=== PATIENT | female | born 1955 | race African-American/Black ===

== ENCOUNTER → 2017-04-14 | Outpatient (CLI) | payer BC ==
[2017-04-14 12:49] LABS: CREATININE 0.8 mg/dL (0.6-1.0); GFR 88.2; POTASSIUM 3.5 mmol/L (3.5-5.1)
== END | disposition home or self-care (01) ==
LOC: LAB 12:00
PROVIDERS: ATTEND Internal Medicine Cardiovascular Disease
DX: I10 Essential (primary) hypertension (principal); G72.89 Other specified myopathies
CPT/HCPCS: 36415; 80048; 83735

== ENCOUNTER → 2017-06-16 | Outpatient (CLI) | payer BC ==
[2017-06-16 15:32] LABS: ALBUMIN 4.2 g/dL (3.4-5.0); ALBUMIN/GLOBULIN RATIO 1.2 (1.0-1.7); CALCIUM 9.6 mg/dL (8.5-10.1); CREATININE 0.7 mg/dL (0.6-1.0); GFR 102.9; POTASSIUM 3.3 mmol/L (3.5-5.1); TOTAL BILIRUBIN 0.5 mg/dL (0.2-1.0); TOTAL PROTEIN 7.8 g/dL (6.4-8.2)
== END | disposition home or self-care (01) ==
LOC: LAB 14:50
PROVIDERS: ATTEND Internal Medicine Cardiovascular Disease
DX: I10 Essential (primary) hypertension (principal); E78.2 Mixed hyperlipidemia; E11.9 Type 2 diabetes mellitus without complications; I51.89 Other ill-defined heart diseases; R94.31 Abnormal electrocardiogram [ECG] [EKG]
CPT/HCPCS: 80053; 82465; 83036

== ENCOUNTER → 2020-09-10 | Outpatient (CLI) | payer BC, MEDICARE, OTHER ==
--- NOTE | 2020-09-10 15:09 | RAD ---
MR#: [id number] Date of Study: 09/10/2020 Ordering Physician: MARICRUZ GALDAMEZ, Referring Physician: MARICRUZ GALDAMEZ, Tech: Amando Yadav MBA, RDMS, RVT, RDCS, RTR APPROVED REPORT Patient Location: OUT-PATIENT Indications PAD Right arm 103, right ankle PT 116, DP 110, index 1.0 Left arm 115, left ankle PT 107, DP 103, index 0.93 Findings Near normal bilateral ABIs as noted above. No significant disease noted. Critical Notification Critical Value: No <Conclusion> Near normal bilateral LILY. Signed by : Maricruz Galdamez, Electronically Approved : 09/10/2020 15:08:43
--- NOTE | 2020-09-10 15:16 | RAD ---
MR#: [id number] Date of Study: 09/10/2020 Ordering Physician: MARICRUZ GALDAMEZ, Referring Physician: MARICRUZ GALDAMEZ, Tech: Amando Yadav MBA, RDMS, RVT, RDCS, RTR APPROVED REPORT Patient Location: OUT-PATIENT Indications PAD VELOCITY AND DOPPLER WAVEFORM ANALYSIS RIGHT cm/secWaveformSeverity LEFT cm/secWaveform Severity dCFA 191.0MonophasicdCFA 128.0Monophasic Prof Fem Art. 75.0MonophasicProf Fem Art. 69.0Monophasic Fem Art Prox. 214.0MonophasicFem Art Prox. 143.0Monophasic Fem Art Mid. 154.0MonophasicFem Art Mid. 113.0Monophasic Fem Art Dist. 147.0MonophasicFem Art Dist. 108.0Monophasic Pop Art(Fossa) 103.0MonophasicPop Art(AK) 91.0Monophasic SOFTWARE INTERN Prox. 38.0MonophasicPTA Prox. 42.0Monophasic SOFTWARE INTERN Dist. 36.0MonophasicPTA Dist. 44.0Monophasic JA Prox. 66.0BiphasicATA Prox. 69.0Monophasic DPA 52BiphasicDPA 47Monophasic Findings Grayscale images demonstrate mild diffuse atherosclerotic plaque. There are mostly monophasic wavefo kaur bilaterally in the lower extremity arterial vessels with two-vessel runoff below the knee. This suggests either diffuse calcification versus more proximal vessel disease. A combined ankle-brachial index with this study revealed near normal LILY suggestive of calcification rather than aortoiliac di sease. Critical Notification Critical Value: No <Conclusion> 1. Monophasic waveforms throughout the bilateral lower extremities with two-vessel runoff without an y critical stenosis identified. Signed by : Maricruz Galdamez, Electronically Approved : 09/10/2020 15:15:58
== END ==
LOC: US 11:29
PROVIDERS: ATTEND Internal Medicine Cardiovascular Disease
DX: I70.203 Unspecified atherosclerosis of native arteries of extremities, bilateral legs (principal)
CPT/HCPCS: 93922; 93925

== ENCOUNTER → 2020-09-18 | Outpatient (CLI) | payer OTHER ==
[2020-09-18 12:12] LABS: ALBUMIN 3.4 g/dL (3.4-5.0); CALCIUM 8.7 mg/dL (8.5-10.1); CREATININE 1.1 mg/dL (0.6-1.0); GFR 60.3; POTASSIUM 4.1 mmol/L (3.5-5.1); TOTAL BILIRUBIN 0.2 mg/dL (0.2-1.0); TOTAL PROTEIN 6.8 g/dL (6.4-8.2)
[2020-09-18 12:14] LABS: CHOLESTEROL/HDL RATIO 2.4
== END ==
LOC: LAB 11:10
PROVIDERS: ATTEND Internal Medicine Cardiovascular Disease
DX: E78.5 Hyperlipidemia, unspecified (principal); I10 Essential (primary) hypertension
CPT/HCPCS: 36415; 80053; 80061; 83880

== ENCOUNTER → 2020-10-14 | Outpatient (CLI) | payer OTHER ==
--- NOTE | 2020-10-14 13:52 | CARD ---
MR#: [id number] Date of Study: 10/14/2020 Ordering Physician: MARICRUZ GALDAMEZ, Referring Physician: MARICRUZ GALDAMEZ, Tech: Kajal Wei [facility] APPROVED REPORT EXAM: Two-dimensional and M-mode echocardiogram with Doppler and color Doppler. Other Information Quality : Good INDICATION Congestive Heart Failure 2D DIMENSIONS Left Atrium(2D)3.5 (1.6-4.0cm)IVSd1.2 (0.7-1.1cm) Aortic Root(2D)2.5 (2.0-3.7cm)LVDd4.0 (3.9-5.9cm) LVOT Diameter1.9 (1.8-2.4cm)PWd0.8 (0.7-1.1cm) LVDs3.4 (2.5-4.0cm)FS (%) 16.1 % SV24.4 mlLVEF(%)34.4 (>50%) Aortic Valve AoV Peak Naseem.135.9cm/sAoV VTI32.5cm AO Peak GR.7.4mmHgLVOT Peak Naseem.89.6cm/s AO Mean GR.4mmHgAVA (VMAX)1.84cm2 JESSICA (VTI)1.80cm2 Mitral Valve MV E Fajgfdil39.6cm/sMV DECEL RLPY595eg MV A Bkuvqxmz26.7cm/sE/A Ratio1.2 Tricuspid Valve TR P. Gosinvtu100qx/sRAP DBVDOAZO5vmYk TR Peak Gr.55zcPiWBDZ45trQm Pulmonary Vein S1 Dtsccmbt46.1cm/sD2 Kviqwfnm32.4cm/s LEFT VENTRICLE The left ventricle is normal size. There is normal left ventricular wall thickness. Left ventricle sy stolic function is mildly impaired. The Ejection Fraction is 45%. There is mild global hypokinesis of the left ventricle. Transmitral Doppler flow pattern is Grade II-pseudonormal filling dynamics. RIGHT VENTRICLE The right ventricle is normal size. The right ventricular systolic function is normal. ATRIA The left atrium size is normal. The right atrium size is normal. The interatrial septum is intact wit h no evidence for an atrial septal defect or patent foramen ovale as noted on 2-D or Doppler imaging. AORTIC VALVE The aortic valve is calcified but opens well. Doppler and Color Flow revealed no significant aortic r egurgitation. There is no significant aortic valvular stenosis. MITRAL VALVE The mitral valve is calcified but opens well. Mitral annular calcification is mild. There is no evide nce of mitral valve prolapse. There is no mitral valve stenosis. Doppler and Color-flow revealed mild mitral regurgitation. TRICUSPID VALVE The tricuspid valve is normal in structure and function. Doppler and Color Flow revealed trace to mil d tricuspid regurgitation. The PA pressure was estimated at 30 mmHg. There is no tricuspid valve sten osis. PULMONIC VALVE The pulmonic valve is not well visualized. Doppler and Color Flow revealed trace pulmonic valvular re gurgitation. There is no pulmonic valvular stenosis. GREAT VESSELS The aortic root is normal in size. The ascending aorta is not well seen. The IVC is normal in size an d collapses >50% with inspiration. PERICARDIAL EFFUSION There is no evidence of significant pericardial effusion. Critical Notification Critical Value: No <Conclusion> Left ventricle systolic function is mildly impaired. The Ejection Fraction is 45%. There is mild global hypokinesis of the left ventricle. Doppler and Color-flow revealed mild mitral regurgitation. Signed by : Maricruz Galdamez, Electronically Approved : 10/14/2020 13:51:50
== END ==
LOC: ECHO 12:08
PROVIDERS: ATTEND Internal Medicine Cardiovascular Disease
DX: I08.3 Combined rheumatic disorders of mitral, aortic and tricuspid valves (principal); I50.9 Heart failure, unspecified
CPT/HCPCS: 93306

== ENCOUNTER → 2021-04-05 | Outpatient (CLI) | payer OTHER ==
[2021-04-05 11:24] LABS: CALCIUM 9.2 mg/dL (8.5-10.1); CREATININE 0.9 mg/dL (0.6-1.0)
[2021-04-05 11:26] LABS: CHOLESTEROL/HDL RATIO 2.5
== END ==
LOC: LAB 10:29
PROVIDERS: ATTEND Internal Medicine Cardiovascular Disease
DX: I11.0 Hypertensive heart disease with heart failure (principal); I50.9 Heart failure, unspecified; E78.5 Hyperlipidemia, unspecified
CPT/HCPCS: 36415; 80048; 80061; 83721; 83880

== ENCOUNTER → 2021-10-04 | Outpatient (CLI) | payer MEDICARE, OTHER ==
[~2021-10-04] MED LIST: ALBU2.5V8 INH; ATOR10TA60 PO; CARV25TA2 PO; FLUT1DIS IH; FURO-69 PO; LEVO25TA4 PO; LOSA-73 PO; METF500T16 PO; REGADENOSON 0.4 MG/5 ML DISP.SYRIN. IV ONE
[2021-10-04 11:34] LABS: ALBUMIN 4.2 g/dL (3.4-5.0); ALBUMIN/GLOBULIN RATIO 1.1 (1.0-1.7); CALCIUM 9.1 mg/dL (8.5-10.1); CREATININE 1.1 mg/dL (0.6-1.0); GFR 60.1; POTASSIUM 3.9 mmol/L (3.5-5.1); TOTAL BILIRUBIN 0.3 mg/dL (0.2-1.0); TOTAL PROTEIN 7.9 g/dL (6.4-8.2)
[2021-10-04 11:38] LABS: CHOLESTEROL/HDL RATIO 2.4
--- NOTE | 2021-10-04 17:06 | RAD ---
MR#: [id number] Date of Study: 10/04/2021 Ordering Physician: MARICRUZ GALDAMEZ, Referring Physician: MARICRUZ GALDAMEZ, Tech: Amando Yadav MBA, RDMS, RVT, RDCS, RTR APPROVED REPORT Patient Location: OUT-PATIENT Indications PAD VELOCITY AND DOPPLER WAVEFORM ANALYSIS RIGHT cm/secWaveformSeverity LEFT cm/secWaveform Severity dCFA 229.0MonophasicdCFA 148.0Monophasic Prof Fem Art. 138.0Prof Fem Art. 63.0Monophasic Fem Art Prox. 199.0MonophasicFem Art Prox. 193.0Monophasic Fem Art Mid. 301.0MonophasicFem Art Mid. 116.0Monophasic Fem Art Dist. 94.0MonophasicFem Art Dist. 104.0Monophasic Pop Art(Fossa) 100.0MonophasicPop Art(AK) 79.0Monophasic [employer] Prox. 28.0MonophasicPTA Prox. 53.0Monophasic [employer] Dist. 22.0MonophasicPTA Dist. 70.0Monophasic Per Art Mid. Per Art Mid. 38.0Monophasic JA Prox. 67.0MonophasicATA Prox. 93.0Monophasic DPA 64MonophasicDPA 45Monophasic Findings Grayscale images of the bilateral lower extremity arterial vessels demonstrate diffuse atherosclerosi s. Spectral waveforms are monophasic throughout the bilateral lower extremity arterial vessels. On the right side there is likely a greater than 50% stenosis involving the mid SFA. Below the knee there is two-vessel runoff. On the left side no high-grade flow-limiting stenosis is noted with thre e-vessel runoff. Critical Notification Critical Value: No <Conclusion> 1. Probable greater than 50% stenosis involving the mid SFA. 2. Bilateral lower extremity monophasic waveforms, cannot rule out proximal aortic inflow disease Signed by : Maricruz Galdamez, Electronically Approved : 10/04/2021 17:05:18
--- NOTE | 2021-10-04 17:06 | RAD ---
MR#: [id number] Date of Study: 10/04/2021 Ordering Physician: MARICRUZ GALDAMEZ, Referring Physician: MARICRUZ GALDAMEZ, Tech: Amando Yadav MBA, RDMS, RVT, RDCS, RTR APPROVED REPORT Patient Location: OUT-PATIENT Indications PAD Findings Right arm 115, left arm 111 Right ankle 121, left ankle 114 Right LILY 1.1, left LILY 0.99 Critical Notification Critical Value: No <Conclusion> 1. Normal bilateral LILY Signed by : Maricruz Galdamez, Electronically Approved : 10/04/2021 17:06:03
--- NOTE | 2021-10-06 09:32 | CARD ---
MR#: [id number] Date of Study: 10/04/2021 Ordering Physician: MARICRUZ GALDAMEZ, Referring Physician: MARICRUZ GALDAMEZ, Tech: Marcia Cornelius [facility] APPROVED REPORT EXAM: Two-dimensional and M-mode echocardiogram with Doppler and color Doppler. Other Information Quality : AverageHR: 61bpm Rhythm : NSR INDICATION Dyspnea RISK FACTORS Hypertension Obesity Hyperlipidemia Diabetes 2D DIMENSIONS RVDd3.0 (2.9-3.5cm)Left Atrium(2D)3.4 (1.6-4.0cm) IVSd0.9 (0.7-1.1cm)Aortic Root(2D)2.7 (2.0-3.7cm) LVDd4.6 (3.9-5.9cm)LVOT Diameter1.8 (1.8-2.4cm) PWd0.9 (0.7-1.1cm)LVDs3.2 (2.5-4.0cm) FS (%) 31.3 %SV58.7 ml Aortic Valve AoV Peak Naseem.142.5cm/sAoV VTI33.5cm AO Peak GR.8.1mmHgLVOT Peak Naseem.61.9cm/s AO Mean GR.4mmHgAVA (VMAX)1.07cm2 Mitral Valve MV E Chxtvtfx60.4cm/sMV DECEL [id number] MV A Dxqunumo06.4cm/sE/A Ratio0.9 Pulmonary Valve PV Peak Ewfzplpy541.7cm/s Tricuspid Valve TR P. Vnazohir089jw/sTR Peak Gr.19mmHg LEFT VENTRICLE The left ventricle is normal size. There is borderline concentric left ventricular hypertrophy. The l eft ventricular systolic function is normal and the ejection fraction is within normal range. LV ejec tion fraction of 50 to 55%. There is normal LV segmental wall motion. The left ventricular diastolic function and filling is normal for age. RIGHT VENTRICLE The right ventricle is normal size. There is normal right ventricular wall thickness. The right ventr icular systolic function is normal. ATRIA The left atrium size is normal. The right atrium size is normal. The interatrial septum is intact wit h no evidence for an atrial septal defect or patent foramen ovale as noted on 2-D or Doppler imaging. AORTIC VALVE The aortic valve is calcified and displays decreased opening. Doppler and Color Flow revealed no sign ificant aortic regurgitation. There is moderate valvular aortic stenosis. MITRAL VALVE The mitral valve is normal in structure and function. There is no evidence of mitral valve prolapse. There is no mitral valve stenosis. Doppler and Color-flow revealed trace mitral regurgitation. TRICUSPID VALVE The tricuspid valve is normal in structure and function. Doppler and Color Flow revealed trace tricus pid regurgitation. Estimated PAP 25 mmHg. PULMONIC VALVE The pulmonary valve is normal in structure and function. Doppler and Color Flow revealed no pulmonic valvular regurgitation. GREAT VESSELS The aortic root is normal in size. The ascending aorta is normal in size. The IVC is normal in size a nd collapses >50% with inspiration. PERICARDIAL EFFUSION There is no evidence of significant pericardial effusion. Critical Notification Critical Value: No <Conclusion> The left ventricle is normal size. The left ventricular systolic function is normal and the ejection fraction is within normal range. LV ejection fraction of 50 to 55%. There is borderline concentric left ventricular hypertrophy. Doppler and Color Flow revealed no significant aortic regurgitation. There is moderate valvular aortic stenosis. Doppler and Color-flow revealed trace mitral regurgitation. Doppler and Color Flow revealed trace tricuspid regurgitation. Estimated PAP 25 mmHg. Signed by : Moses Butler MD Electronically Approved : 10/06/2021 09:32:10
--- NOTE | 2021-10-06 10:31 | RAD ---
MR#: [id number] Date of Study: 10/04/2021 Ordering Physician: MARICRUZ GALDAMEZ, Referring Physician: ALISE JOSEPH Tech: FREDY Gifford ARRT (R) (N) APPROVED REPORT Test Type: Pharmacological Stress Nurse/Tech: Lilia HARMON Test Indications: CHF, Dyspnea. Cardiac History: CHF, HTN, COPD, Femoral stents in R leg, smoker, DM Medications: ASA Medical History: See EMR Resting ECG: SR Resting Heart Rate: 57 bpm Resting Blood Pressure: 112/50mmHg Pretest Chest Pain: None Nurse/Tech Notes Patient attempted treadmill stress test. Stopped due to leg pain. Changed to pharm. test. Lexiscan c ompleted. Lungs clear, but diminished. Murmur noted. No chest pain. Pharm. Details Pharmacologic stress testing was performed using 0.4mg per 5ml of regadenoson given intravenously ove r 7-10 seconds. Stress Symptoms Flushing, Fatigue. No chest pain. POST EXERCISE Reason for Termination: Treadmill stopped due to leg pain. Infusion complete. Tolerated well. Max HR: 136 bpm Max Blood Pressure: 132/53mmHg Blood Pressure response to exercise: Normal blood pressure response during stress. Heart Rate response to exercise: Normal response. Chest Pain: No. Arrhythmia: No. ST Change: No. INTERPRETATION Stress EKG Conclusion: The resting EKG shows a sinus rhythm with nonspecific ST-T wave changes. The stress EKG shows no significant changes from baseline. Abnormal resting EKG but no EKG evidence of stress-induced ischemia. Imaging Protocol IMAGE PROTOCOL: Rest Tc-99m/stress Tc-99m 1 day Rest: Stress: Viability: Radiopharm.Tc99m BsttsbsrkRl73r Sestamibi Dose9.9mCi 32mCi Img Date 10/04/2021 10/04/2021 Inj-Img [id number]. 60min. Rest Admin Site:IV - Right WristAdministrator:FREDY Gifford ARRT (R)(N) Stress Admin Site: IV - Right WristAdministrator: Valerie Rowe, RT (R)(N) STRESS DATA End Diast. Vol.71.0mlAv. Heart Rate61.0bpm End Syst. Vol.23.0mlCO Index BSA0.0L/min Myocardial Tdgr769.0gEject. Tvjoqbei59.0% Stress Rates Pk. Fill Rate3.27EDV/secLVtime Pk. Fill 167.56msec Pk. Empty Rate3.85ESV/secLVtime Pk. Jgozt921.15msec 07/19 Pk. Fill1.68EDV/sec Stress Scores Regional WT1.00Summed WT1.00 Regional WM0.00Summed WM7.00 LV Perfusion The stress scans showed no significant defects. The rest scans showed no significant defects. Nuclear imaging shows no reversible ischemia or infarct. Wall Motion Normal LV systolic function with an ejection fraction of 74%. LV Perf. Quant 17 Seg. SSS0.00 17 Seg. SRS0.00 17 Seg. SDS0.00 Stress Defect Extent (% LAD)0.00Rest Defect Extent (% LAD)0.00Rev. Defect Extent (% LAD)0.00 Stress Defect Extent (% LCX) 0.00Rest Defect Extent (% LCX)0.00Rev. Defect Extent (% LCX)0.00 Stress Defect Extent (% RCA)0.00Rest Defect Extent (% RCA)0.00Rev. Defect Extent (% RCA)0.00 Stress Defect Extent (% BASIL)0.00Rest Defect Extent (% BASIL)0.00Rev. Defect Extent (% BASIL)0.00 Conclusion 1. The patient was unable to complete a treadmill version of the test secondary to leg pain. 2. Abnormal baseline EKG but no EKG evidence of stress-induced ischemia. 3. Nuclear imaging shows no reversible ischemia or infarct. 4. Intact LV systolic function with an ejection fraction of 74%. 5. Moderately low risk Lexiscan nuclear stress test. Signed by : Moses Butler MD Electronically Approved : 10/06/2021 10:31:20
== END ==
LOC: NM 07:37
PROVIDERS: ATTEND Internal Medicine Cardiovascular Disease
DX: I35.1 Nonrheumatic aortic (valve) insufficiency (principal); I70.203 Unspecified atherosclerosis of native arteries of extremities, bilateral legs; R94.31 Abnormal electrocardiogram [ECG] [EKG]
CPT/HCPCS: 36415; 78452; 80053; 80061; 83721; 83880; 93017; 93306; 93922; 93925; A9500; J2785; C8929